=== PATIENT | male | born 1950 | race Caucasian/White ===

== ENCOUNTER 2021-08-09 19:11 | Outpatient (CLI) | payer MEDICARE, BC | END 2021-08-09 19:12 | disposition short-term general hospital (02) | LOC: EMS 19:11 | DX: M54.2 Cervicalgia (principal); R44.8 Other symptoms and signs involving general sensations and perceptions | CPT/HCPCS: A0425; A0429 ==

== ENCOUNTER 2021-08-11 00:27 | Outpatient (CLI) | payer MEDICARE, BC | END 2021-08-11 00:28 | disposition short-term general hospital (02) | LOC: EMS 00:27 | DX: M54.2 Cervicalgia (principal); M54.9 Dorsalgia, unspecified; R51.9 Headache, unspecified | CPT/HCPCS: A0425; A0429 ==

== ENCOUNTER 2021-08-13 12:47 | Outpatient (CLI) | payer MEDICARE, BC | END 2021-08-13 12:48 | disposition short-term general hospital (02) | LOC: EMS 12:47 | DX: M79.601 Pain in right arm (principal); M79.604 Pain in right leg | CPT/HCPCS: A0425; A0429 ==